=== PATIENT | female | born 1980 ===

== ENCOUNTER 2024-08-02 19:51 | Outpatient (REF) | payer OTHER, SELFPAY ==
[2024-08-02 21:49] LABS: HCT 37.2 % (36.0-46.0); HGB 12.3 g/dL (11.2-15.7); MCH 30.8 pg (27.0-33.0); MCHC 33.1 % (32.0-36.0); MCV 93 fL (80-95); MPV 11.3 fL (8.0-11.0); Platelet Count 273 10^3/uL (130-400); RBC 3.99 10^6/uL (3.93-5.22); RDW 12.3 % (11.7-14.6); RDW-SD 42.4 fL; WBC 8.19 10^3/uL (4.4-10.8)
[2024-08-02 22:04] LABS: ALT 22 U/L (14-59); AST 18 U/L (15-37); Albumin 3.4 g/dL (3.4-5.0); Alkaline Phosphatase 111 U/L (46-116); BUN 10 mg/dL (7-18); Bilirubin, Total 0.19 mg/dL (0.2-1.0); CREATININE 0.8 mg/dL (0.55-1.02); Calculated LDL 129 mg/dL (<100); Chloride 108 mmol/L (98-107); Cholesterol 206 mg/dL (<200); Estimated GFR 94.28 (mL/min/1.73m2); Glucose 95 mg/dL (74-106); HDL Cholesterol 59 mg/dL (40-60); Potassium 3.8 mmol/L (3.5-5.1); Sodium 141 mmol/L (136-145); TSH (W/Ref FT4) 1.09 uIU/mL (0.36-3.74); Total Protein 7.4 g/dL (6.4-8.2); Triglyceride 91 mg/dL (<150)
== END 2024-08-02 19:52 | disposition home or self-care (01) ==
LOC: NCHCN 19:51
PROVIDERS: Visit Provider Family Medicine
DX: E66.3 Overweight (principal); Z13.220 Encounter for screening for lipoid disorders; R53.83 Other fatigue
CPT/HCPCS: 80053; 80061; 85027; 84443

== ENCOUNTER 2024-11-02 21:48 | Outpatient (REF) | payer BC, SELFPAY ==
--- NOTE | 2024-11-02 15:10 | PAPFT_PTH ---
PATIENT: Jordi May LOC: [facility] U#:[id number] AGE/SX: 44/F ROOM: RE11/02/[address]: ALBERTO: 1980 BED: DIS: 11/02/2024 SPEC #: [id number] RECD: 11/03/24 12:53 STATUS: D[place]TON REQ #: [id number] OLIVIA: 11/02/24 15:[address]: Inocencia Encarnacion DEPT: [facility] Cytology RECD BY: Nadja Rodrigues ENTERED: 11/03/24 12:53 SP TYPE: PAPFT ARLYN DR: Unknown,Unknown Tissues: 1 - CX/ENDOCX FOR PAP SMEARS Procedures: PAP THIN PREP/[facility] Screening HPV DNA PROBE Comments: [id number] (HPV 16 & 18/45)
== END 2024-11-02 21:49 | disposition home or self-care (01) ==
LOC: NCHCN 21:48
PROVIDERS: Visit Provider Family Medicine
DX: Z11.51 Encounter for screening for human papillomavirus (HPV) (principal); Z01.419 Encounter for gynecological examination (general) (routine) without abnormal findings
CPT/HCPCS: 88142; 87624